=== PATIENT | female | born 1995 | race American Indian/Alaskan Native ===

== ENCOUNTER 2020-12-01 17:08 | Emergency (ER) | payer SELFPAY ==
[2020-12-01 17:55] VITALS: BP 120/56
--- NOTE | 2020-12-01 18:11 | Emergency Department Report ---
- General Chief complaint: Allergic Reaction Stated complaint: ALLERGIC REACTION Time Seen by Provider: 12/01/20 18:06 Source: patient Mode of arrival: Ambulatory Limitations: No Limitations - History of Present Illness Initial comments: pt is a 25 yo female who presents to the ED with c/o a rash that began a month ago. she states she recently moved here in august. she states she was not sure if she was having an allergic reaction to something. she states she changed all her soaps and detergents to sensitive skin. she states she continues to have intermittent outbreaks of the rash. she states it is present to the back of the wrists, flexors of the elbow, in between the legs, behind the knees. she denies any known allergies. she denies any new medications and foods. she states she has been using cortisone over the counter without much relief. she states it itches and cervantes. she denies any facial swelling, sensation of throat closing, difficulty swallowing or breathing. no pmhx. no allergies to meds. she is currently on her menstrual cycle. - Related Data Previous Rx's Medication Instructions Recorded Last Taken Type Codeine/Butalbital/ASA/Caffein 1 each PO Q4-6H PRN #30 capsule 12/30/15 Unknown Rx [Fiorinal with Codeine #3 Cap] Ibuprofen [Motrin 800 MG tab] 800 mg PO TID PRN #30 tablet 12/30/15 Unknown Rx Naproxen [Naprosyn] 500 mg PO BID PRN #20 tablet 07/05/16 Unknown Rx Prednisone [predniSONE 10 mg 10 mg PO .TAPER #1 tab.ds.pk 12/01/20 Unknown Rx (6-Day Pack, 21 Tabs)] Triamcinolone 0.1% [Kenalog 0.1% 1 applic TP TID #1 tube 12/01/20 Unknown Rx CREAM] diphenhydrAMINE [Benadryl CAP] 25 mg PO Q6HR PRN #14 capsule 12/01/20 Unknown Rx Allergies Allergy/AdvReac Type Severity Reaction Status Date / Time No Known Allergies Allergy Unverified 12/28/15 21:11 Abscess Boil HPI - HPI Chief Complaint: Allergic Reaction Stated Complaint: ALLERGIC REACTION Time Seen by Provider: 12/01/20 18:06 Home Medications: Previous Rx's Medication Instructions Recorded Last Taken Type Codeine/Butalbital/ASA/Caffein 1 each PO Q4-6H PRN #30 capsule 12/30/15 Unknown Rx [Fiorinal with Codeine #3 Cap] Ibuprofen [Motrin 800 MG tab] 800 mg PO TID PRN #30 tablet 12/30/15 Unknown Rx Naproxen [Naprosyn] 500 mg PO BID PRN #20 tablet 07/05/16 Unknown Rx Prednisone [predniSONE 10 mg 10 mg PO .TAPER #1 tab.ds.pk 12/01/20 Unknown Rx (6-Day Pack, 21 Tabs)] Triamcinolone 0.1% [Kenalog 0.1% 1 applic TP TID #1 tube 12/01/20 Unknown Rx CREAM] diphenhydrAMINE [Benadryl CAP] 25 mg PO Q6HR PRN #14 capsule 12/01/20 Unknown Rx Allergies/Adverse Reactions: Allergies Allergy/AdvReac Type Severity Reaction Status Date / Time No Known Allergies Allergy Unverified 12/28/15 21:11 ED Review of Systems ROS: Stated complaint: ALLERGIC REACTION Other details as noted in HPI Comment: All other systems reviewed and negative ED Past Medical Hx - Past Medical History Previous Medical History?: Yes Hx Hypertension: Yes (gestational) Hx Congestive Heart Failure: No Hx Diabetes: No Hx Deep Vein Thrombosis: No Hx Renal Disease: No Hx Sickle Cell Disease: No Hx Seizures: No Hx Asthma: No Hx COPD: No Hx HIV: No Additional medical history: Had IUD placed 05/29/16 - Surgical History Past Surgical History?: Yes Hx Cholecystectomy: Yes - Social History Smoking Status: Current Every Day Smoker - Medications Home Medications: Home Medications Medication Instructions Recorded Confirmed Last Taken Type Codeine/Butalbital/ASA/Caffein 1 each PO Q4-6H PRN #30 capsule 12/30/15 Unknown Rx [Fiorinal with Codeine #3 Cap] Ibuprofen [Motrin 800 MG tab] 800 mg PO TID PRN #30 tablet 12/30/15 Unknown Rx Naproxen [Naprosyn] 500 mg PO BID PRN #20 tablet 07/05/16 Unknown Rx Prednisone [predniSONE 10 mg 10 mg PO .TAPER #1 tab.ds.pk 12/01/20 Unknown Rx (6-Day Pack, 21 Tabs)] Triamcinolone 0.1% [Kenalog 0.1% 1 applic TP TID #1 tube 12/01/20 Unknown Rx CREAM] diphenhydrAMINE [Benadryl CAP] 25 mg PO Q6HR PRN #14 capsule 12/01/20 Unknown Rx ED Physical Exam - General Limitations: No Limitations General appearance: alert, in no apparent distress - Head Head exam: Present: atraumatic, normocephalic - Eye Eye exam: Present: normal appearance - ENT ENT exam: Present: mucous membranes moist - Respiratory Respiratory exam: Absent: respiratory distress, accessory muscle use - Neurological Exam Neurological exam: Present: alert, oriented X3 - Psychiatric Psychiatric exam: Present: normal affect, normal mood - Skin Skin exam: Present: warm, dry, other (small erythematous macules present to the flexor of the wrists, flexors of the elbow, flexors of the knees, no blistering, no skin denuding, no necrosis, no signs of infection) ED Course Vital Signs 12/01/20 17:52 Temperature 98.1 F Pulse Rate 84 Respiratory 16 Rate Blood Pressure 120/56 O2 Sat by Pulse 98 Oximetry ED Medical Decision Making - Medical Decision Making pt is a 25 yo female who presents to the ED with c/o a rash that began a month ago. she states she recently moved here in august. she states she was not sure if she was having an allergic reaction to something. she states she changed all her soaps and detergents to sensitive skin. she states she continues to have intermittent outbreaks of the rash. she states it is present to the back of the wrists, flexors of the elbow, in between the legs, behind the knees. she denies any known allergies. she denies any new medications and foods. she states she has been using cortisone over the counter without much relief. she states it itches and cervantes. she denies any facial swelling, sensation of throat closing, difficulty swallowing or breathing. no pmhx. no allergies to meds. she is currently on her menstrual cycle. Vitals are normal. On exam: small erythematous macules present to the flexor of the wrists, flexors of the elbow, flexors of the knees, no blistering, no skin denuding, no necrosis, no signs of infection. Symptoms appear most consistent with eczema outbreak. Given prescription for prednisone, triamcinolone, Benadryl. Advised patient please u se medication as prescribed. do not drive or operate heavy machinery while taking benadryl due to potential for drowsiness. please also use an emollient lotion over the counter. follow up with a primary care doctor. return to the emergency room for any new or worsening symptoms. Critical care attestation.: If time is entered above; I have spent that time in minutes in the direct care of this critically ill patient, excluding procedure time. ED Disposition Clinical Impression: Rash Disposition: DC-01 TO HOME OR SELFCARE Is pt being admited?: No Does the pt Need Aspirin: No Condition: Stable Instructions: Eczema, Rash, Adult, [id number] Additional Instructions: please use medication as prescribed. do not drive or operate heavy machinery while taking benadryl due to potential for drowsiness. please also use an emollient lotion over the counter. follow up with a primary care doctor. return to the emergency room for any new or worsening symptoms. Prescriptions: diphenhydrAMINE [Benadryl CAP] 25 mg PO Q6HR PRN #14 capsule PRN Reason: itching Triamcinolone 0.1% [Kenalog 0.1% CREAM] 1 applic TP TID #1 tube Prednisone [predniSONE 10 mg (6-Day Pack, 21 Tabs)] 10 mg PO .TAPER #1 tab.ds.pk Referrals: SARIKA PUGH MD [Staff Physician] - 3-5 Days [facility] [Provider Group] - 3-5 Days [facility] [Outside] - 3-5 Days Time of Disposition: 18:11 Print Language: PASHTO
== END 2020-12-01 19:20 | disposition home or self-care (01) ==
LOC: ED 17:08
DX: R21 Rash and other nonspecific skin eruption (principal); I10 Essential (primary) hypertension; F17.200 Nicotine dependence, unspecified, uncomplicated; Z90.49 Acquired absence of other specified parts of digestive tract; Z79.899 Other long term (current) drug therapy
CPT/HCPCS: 99282

== ENCOUNTER 2021-06-23 01:51 | Emergency (ER) | payer SELFPAY ==
[2021-06-23 02:03] VITALS: BP 113/71
[2021-06-23 03:41] LABS: Basophils # (Auto) 0.1 K/mm3 (0.0-0.1); Basophils % (Auto) 0.8 % (0.0-1.8); Eosinophils # (Auto) 0.1 K/mm3 (0.0-0.4); Eosinophils % (Auto) 0.6 % (0.0-4.3); Hematocrit 34.5 % (30.3-42.9); Hemoglobin 11.4 gm/dl (10.1-14.3); Lymphocytes # (Auto) 2.8 K/mm3 (1.2-5.4); Mean Corpuscular HGB Conc 33 % (30-34); Mean Corpuscular Volume 79 fl (79-97); Monocytes # (Auto) 1.1 K/mm3 (0.0-0.8); Monocytes % (Auto) 6.8 % (0.0-7.3); Platelet Count 429 K/mm3 (140-440); Red Blood Count 4.35 M/mm3 (3.65-5.03); Red Cell Distribution Width 19.3 % (13.2-15.2)
[2021-06-23 03:57] LABS: Alanine Aminotransferase 30 units/L (7-56); Albumin 3.7 g/dL (3.9-5); Blood Urea Nitrogen 5 mg/dL (7-17); Calcium 9.4 mg/dL (8.4-10.2); Hemolysis Index 2
--- NOTE | 2021-06-23 03:57 | Emergency Department Report ---
ED HPI - General Chief complaint: Abdominal Pain Stated complaint: SHARP ABD PAINS Time Seen by Provider: 06/23/21 03:52 Source: patient Mode of arrival: Wheelchair Limitations: No Limitations - History of Present Illness Initial comments: Patient is a 26-year-old female that presents emergency room with complaints of lower abdominal pain. Patient states the pain started 2 days ago. Patient dates the pain is worsening. Patient states she is 18 weeks . Patient states she is followed by FABRICATION TECHNICIAN. Patient states she has had confirmation by ultrasound. Patient denies vaginal bleeding. Patient denies dysuria. Patient denies fever and chills. Patient states she had sex earlier today. Patient states she is a G2, P1 Patient denies recent travel. Patient denies recent international travel. Patient denies exposure to the novel coronavirus. Patient denies sick contacts. Patient denies fever and chills. Patient denies cough. Patient denies diarrhea. Patient denies coming in contact with anybody with symptoms of the no lee coronavirus. MD Complaint: abdominal pain -: Sudden Location: abdomen Radiation: L flank, R flank Severity: severe Quality: cramping, stabbing Consistency: intermittent Improves with: rest Worsens with: movement Associated symptoms: abdominal pain. denies: nausea/vomiting, vaginal bleeding, vaginal discharge, dysuria, headache, vision changes, malaise, dysparuenia, rash, seizure, shortness of breath, syncope, weakness Vaginal bleeding: none :: Yes Number of weeks : 18 OB History - Current : no complications OB History - Previous Pregnancies: no complications Pre-sudeep care: followed by OB, previous ultrasound confi - Related Data Previous Rx's Medication Instructions Recorded Last Taken Type Codeine/Butalbital/ASA/Caffein 1 each PO Q4-6H PRN #30 capsule 12/30/15 Unknown Rx [Fiorinal with Codeine #3 Cap] Ibuprofen [Motrin 800 MG tab] 800 mg PO TID PRN #30 tablet 12/30/15 Unknown Rx Naproxen [Naprosyn] 500 mg PO BID PRN #20 tablet 07/05/16 Unknown Rx Prednisone [predniSONE 10 mg 10 mg PO .TAPER #1 tab.ds.pk 12/01/20 Unknown Rx (6-Day Pack, 21 Tabs)] Triamcinolone 0.1% [Kenalog 0.1% 1 applic TP TID #1 tube 12/01/20 Unknown Rx CREAM] diphenhydrAMINE [Benadryl CAP] 25 mg PO Q6HR PRN #14 capsule 12/01/20 Unknown Rx Allergies Allergy/AdvReac Type Severity Reaction Status Date / Time No Known Allergies Allergy Verified 06/23/21 02:03 ED Review of Systems ROS: Stated complaint: SHARP ABD PAINS Other details as noted in HPI Constitutional: denies: chills, fever Eyes: denies: eye pain, eye discharge, vision change ENT: denies: ear pain, throat pain Respiratory: denies: cough, shortness of breath, wheezing Cardiovascular: denies: chest pain, palpitations Endocrine: no symptoms reported Gastrointestinal: abdominal pain. denies: nausea, diarrhea Genitourinary: denies: urgency, dysuria, discharge Musculoskeletal: denies: back pain, joint swelling, arthralgia Skin: denies: rash, lesions Neurological: denies: headache, weakness, paresthesias Psychiatric: denies: anxiety, depression Hematological/Lymphatic: denies: easy bleeding, easy bruising ED Past Medical Hx - Past Medical History Previous Medical History?: Yes Hx Hypertension: Yes (gestational) Hx Congestive Heart Failure: No Hx Diabetes: No Hx Deep Vein Thrombosis: No Hx Renal Disease: No Hx Sickle Cell Disease: No Hx Seizures: No Hx Asthma: No Hx COPD: No Hx HIV: No Additional medical history: Had IUD placed 05/29/16 - Surgical History Past Surgical History?: Yes Hx Cholecystectomy: Yes - Family History Family history: no significant - Social History Smoking Status: Never Smoker Substance Use Type: None - Medications Home Medications: Home Medications Medication Instructions Recorded Confirmed Last Taken Type Codeine/Butalbital/ASA/Caffein 1 each PO Q4-6H PRN #30 capsule 12/30/15 Unknown Rx [Fiorinal with Codeine #3 Cap] Ibuprofen [Motrin 800 MG tab] 800 mg PO TID PRN #30 tablet 12/30/15 Unknown Rx Naproxen [Naprosyn] 500 mg PO BID PRN #20 tablet 07/05/16 Unknown Rx Prednisone [predniSONE 10 mg 10 mg PO .TAPER #1 tab.ds.pk 12/01/20 Unknown Rx (6-Day Pack, 21 Tabs)] Triamcinolone 0.1% [Kenalog 0.1% 1 applic TP TID #1 tube 12/01/20 Unknown Rx CREAM] diphenhydrAMINE [Benadryl CAP] 25 mg PO Q6HR PRN #14 capsule 12/01/20 Unknown Rx ED Physical Exam - General Limitations: No Limitations General appearance: alert, in no apparent distress - Head Head exam: Present: atraumatic, normocephalic - Eye Eye exam: Present: normal appearance - ENT ENT exam: Present: mucous membranes moist - Neck Neck exam: Present: normal inspection - Respiratory Respiratory exam: Present: normal lung sounds bilaterally. Absent: respiratory distress - Cardiovascular Cardiovascular Exam: Present: regular rate, normal rhythm. Absent: systolic murmur, diastolic murmur, rubs, gallop - GI/Abdominal GI/Abdominal exam: Present: soft, normal bowel sounds. Absent: distended, tenderness, guarding - Extremities Exam Extremities exam: Present: normal inspection - Back Exam Back exam: Present: normal inspection - Neurological Exam Neurological exam: Present: alert, oriented X3 - Psychiatric Psychiatric exam: Present: normal affect, normal mood - Skin Skin exam: Present: warm, dry, intact, normal color. Absent: rash ED Course Vital Signs 06/23/21 06/23/21 01:59 06:51 Temperature 98.0 F Pulse Rate 81 80 Respiratory 18 18 Rate Blood Pressure 113/71 O2 Sat by Pulse 98 98 Oximetry - Reevaluation(s) Reevaluation #1: I discussed all results and clinical findings with patient. I discussed plan of care with patient. Patient agrees with plan of care. Patient is stable for discharge. Patient will be discharged home. Patient given discharge instruct ions. Patient voiced understanding of discharge instructions. 06/23/21 05:43 ED Medical Decision Making - Lab Data Result diagrams: 06/23/21 03:21 06/23/21 03:21 - Radiology Data Radiology results: report reviewed ULTRASOUND OBSTETRIC COMPLETE INDICATION / CLINICAL INFORMATION: abdomen pain. Clinical Gestational Age (GA) in weeks, days: 14 weeks 2 days TECHNIQUE: Transabdominal. COMPARISON: None available. FINDINGS: Single live IUP in cephalic presentation. Posterior placenta is free of the os. MEASUREMENTS: - Biparietal Diameter = 2.5 cm = 14 weeks 2 days - Head Circumference = 9.6 cm = 14 weeks 3 days - Abdominal Circumference = 8.6 cm = 14 weeks 6 days - Femur Length = 1.6 cm = 14 weeks 5 days - Heart Rate (beats per minute): 158 ADDITIONAL FINDINGS: None. AVERAGE ULTRASOUND AGE (AUA) in weeks, days = 14 weeks 4 days IMPRESSION: Single intrauterine with ultrasound age of 14 weeks 4 days. No significant abnormality. - Medical Decision Making Patient is a 26-year-old female who presents emergency room with complaints of lower abdominal pain. Patient abdominal pain is more to the flank area. Patient denies nausea vomiting. Patient denies chest pain shortness of breath. Patient had an ultrasound which was negative and shows a stable IUP. Patient had labs done which was essentially unremarkable. Patient's urine shows moderate leukocyte esterases but very low WBCs. Patient's urine is asymptomatic pyuria and can be followed by her FABRICATION TECHNICIAN. Patient is stable for discharge. Patient will follow up with her FABRICATION TECHNICIAN as an outpatient. Patient not require any inpatient services. Patient require further emergency medical service. Patient stable for discharge. I discussed all results and clinical findings with patient. I discussed plan of care with patient. Patient agrees with plan of care. Patient is stable for discharge. Patient will be discharged home. Patient given discharge instructions. Patient voiced understanding of discharge instructions. - Differential Diagnosis Round ligament pain, , abdominal pain, Critical care attestation.: If time is entered above; I have spent that time in minutes in the direct care of this critically ill patient, excluding procedure time. ED Disposition Clinical Impression: Abdominal pain affecting , Lower abdominal pain, Round ligament pain Qualifiers: Weeks of gestation: 18 weeks Qualified Code(s): Z3A.18 - 18 weeks gestation of Disposition: 01 HOME / SELF CARE / HOMELESS Is pt being admited?: No Does the pt Need Aspirin: No Condition: Stable Instructions: Round Ligament Pain, Abdominal Pain During , [id number], Abdominal Pain (ED) Additional Instructions: Patient to follow-up with primary care in 2 to 3 days. Patient to follow-up with FABRICATION TECHNICIAN in 2 to 3 days. Patient to rest. Patient to increase water. Patient to avoid strenuous exercise or heavy lifting until cleared by FABRICATION TECHNICIAN. No sexual activity until cleared by OB, IRRIGATOR OVERHEAD. Patient to take Tylenol as needed for pain. Patient to continue vitamin. Patient to return to the ER if condition worsens, changes or new symptoms arise. Referrals: PRIMARY CARE, [Primary Care Provider] - 2-3 Days Forms: Accompanied Note, Work/School Release Form(ED) Time of Disposition: 05:43
[2021-06-23 04:10] LABS: BUN/Creatinine Ratio 10
--- NOTE | 2021-06-23 05:38 | Ultrasound Report ---
ULTRASOUND OBSTETRIC COMPLETE INDICATION / CLINICAL INFORMATION: abdomen pain. Clinical Gestational Age (GA) in weeks, days: 14 weeks 2 days TECHNIQUE: Transabdominal. COMPARISON: None available. FINDINGS: Single live IUP in cephalic presentation. Posterior placenta is free of the os. MEASUREMENTS: - Biparietal Diameter = 2.5 cm = 14 weeks 2 days - Head Circumference = 9.6 cm = 14 weeks 3 days - Abdominal Circumference = 8.6 cm = 14 weeks 6 days - Femur Length = 1.6 cm = 14 weeks 5 days - Heart Rate (beats per minute): 158 ADDITIONAL FINDINGS: None. AVERAGE ULTRASOUND AGE (AUA) in weeks, days = 14 weeks 4 days IMPRESSION: Single intrauterine with ultrasound age of 14 weeks 4 days. No significant abnormality. Signer Name: Jose Milian MD Signed: 06/23/2021 5:33 AM Workstation Name: [id number]
[2021-06-23 06:51] LABS: Bacteria,Urine 1+ /HPF (Negative); Bilirubin,Urine NEG (Negative); Blood,Urine NEG (Negative); Color,Urine Yellow (Yellow); Mucus,Urine 1+ /HPF; Protein,Urine <15 mg/dL mg/dL (Negative); Urobilinogen,Urine < 2.0 mg/dL (<2.0)
[2021-06-23 07:10] LABS: RBC,Urine < 1.0 /HPF (0.0-6.0)
== END 2021-06-23 06:53 | disposition home or self-care (01) ==
LOC: ED 01:51
DX: O26.892 Other specified pregnancy related conditions, second trimester (principal); R10.30 Lower abdominal pain, unspecified; R10.2 Pelvic and perineal pain; Z3A.14 14 weeks gestation of pregnancy; I10 Essential (primary) hypertension
CPT/HCPCS: 36415; 76805; 80053; 81001; 84702; 85025; 86850; 86900; 86901; 99284

== ENCOUNTER 2021-07-14 13:31 | Emergency (ER) | payer OTHER ==
[2021-07-14] MEDS ORDERED: SODIUM CHLORIDE 0.9% 1000 ML 1,000 ML IV ONE (13:43)
--- NOTE | 2021-07-14 14:07 | Emergency Department Report ---
ED Abdominal Pain HPI - General Chief Complaint: Abdominal Pain Stated Complaint: 17WKS /KIDNEY INFECTION Source: patient Mode of arrival: Ambulatory Limitations: No Limitations - History of Present Illness Initial Comments: The patient was evaluated in the emergency department for symptoms described in the history of present illness. He/she was evaluated in the context of the global COVID-19 pandemic, which necessitated consideration that the patient might be at risk for infection with the virus that causes COVID-19. Institutional protocols and algorithms that pertain to the evaluation of patients at risk for COVID-19 are in a state of rapid change based on info rmation released by regulatory bodies including the CDC and federal and state organizations. These policies and algorithms were followed during the patient's care in the emergency department. Please note that these policies, procedures and recommendations changed on a rapid basis. 26-year-old -[place] female who is approximately 17 weeks presents to the emergency room from [facility] for kidney infection. Patient complains that the pain just started yesterday in her left flank and now it is on both sides. Patient reports that she has had some mild bleeding when she had intercourse. She is 3 para 1 with 1 . Patient denies any fever chills but does admit to nausea and vomiting. She reports her pain is located bilateral flanks are 8 out of 10. MD Complaint: abdominal pain -: Last night Location: L flank, R flank Radiation: LUQ, RUQ Severity scale (0 -10): 8 Quality: stabbing, sharp Consistency: intermittent Improves With: nothing Worsens With: nothing Associated Symptoms: nausea, vomiting - Related Data Previous Rx's Medication Instructions Recorded Last Taken Type Codeine/Butalbital/ASA/Caffein 1 each PO Q4-6H PRN #30 capsule 12/30/15 Unknown Rx [Fiorinal with Codeine #3 Cap] Ibuprofen [Motrin 800 MG tab] 800 mg PO TID PRN #30 tablet 12/30/15 Unknown Rx Naproxen [Naprosyn] 500 mg PO BID PRN #20 tablet 07/05/16 Unknown Rx Prednisone [predniSONE 10 mg 10 mg PO .TAPER #1 tab.ds.pk 12/01/20 Unknown Rx (6-Day Pack, 21 Tabs)] Triamcinolone 0.1% [Kenalog 0.1% 1 applic TP TID #1 tube 12/01/20 Unknown Rx CREAM] diphenhydrAMINE [Benadryl CAP] 25 mg PO Q6HR PRN #14 capsule 12/01/20 Unknown Rx Nitrofurantoin [place]/M-Cryst 100 mg PO Q12HR 7 Days #14 capsule 07/14/21 Unknown Rx [Macrobid CAP] Allergies Allergy/AdvReac Type Severity Reaction Status Date / Time No Known Allergies Allergy Verified 06/23/21 02:03 ED Review of Systems ROS: Stated complaint: 17WKS /KIDNEY INFECTION Other details as noted in HPI Comment: All other systems reviewed and negative ED Past Medical Hx - Past Medical History Previous Medical History?: Yes Hx Hypertension: Yes (gestational) Hx Congestive Heart Failure: No Hx Diabetes: No Hx Deep Vein Thrombosis: No Hx Renal Disease: No Hx Sickle Cell Disease: No Hx Seizures: No Hx Asthma: No Hx COPD: No Hx HIV: No Additional medical history: Had IUD placed 05/29/16 - Surgical History Past Surgical History?: Yes Hx Cholecystectomy: Yes - Social History Smoking Status: Never Smoker Substance Use Type: None - Medications Home Medications: Home Medications Medication Instructions Recorded Confirmed Last Taken Type Codeine/Butalbital/ASA/Caffein 1 each PO Q4-6H PRN #30 capsule 12/30/15 Unknown Rx [Fiorinal with Codeine #3 Cap] Ibuprofen [Motrin 800 MG tab] 800 mg PO TID PRN #30 tablet 12/30/15 Unknown Rx Naproxen [Naprosyn] 500 mg PO BID PRN #20 tablet 07/05/16 Unknown Rx Prednisone [predniSONE 10 mg 10 mg PO .TAPER #1 tab.ds.pk 12/01/20 Unknown Rx (6-Day Pack, 21 Tabs)] Triamcinolone 0.1% [Kenalog 0.1% 1 applic TP TID #1 tube 12/01/20 Unknown Rx CREAM] diphenhydrAMINE [Benadryl CAP] 25 mg PO Q6HR PRN #14 capsule 12/01/20 Unknown Rx Nitrofurantoin [place]/M-Cryst 100 mg PO Q12HR 7 Days #14 capsule 07/14/21 Unknown Rx [Macrobid CAP] ED Physical Exam - General Limitations: No Limitations General appearance: alert, in distress - Head Head exam: Present: atraumatic, normocephalic - Eye Eye exam: Present: normal appearance - ENT ENT exam: Present: mucous membranes moist - Neck Neck exam: Present: normal inspection, full ROM - Respiratory Respiratory exam: Absent: accessory muscle use - Cardiovascular Cardiovascular Exam: Present: regular rate - GI/Abdominal GI/Abdominal exam: Present: soft. Absent: distended, tenderness - Extremities Exam Extremities exam: Present: normal inspection - Back Exam Back exam: Present: CVA tenderness (L) - Neurological Exam Neurological exam: Present: alert, oriented X3 - Psychiatric Psychiatric exam: Present: normal affect, normal mood - Skin Skin exam: Present: warm, dry, intact, normal color. Absent: rash ED Course Vital Signs 07/14/21 07/14/21 13:36 14:25 Temperature 97.7 F 98.8 F Pulse Rate 102 H 66 Respiratory 18 14 Rate Blood Pressure 125/87 166/75 [Left] O2 Sat by Pulse 100 97 Oximetry - Consultations Consultation #1: 07/14/21 16:[address] Millan DAG COATER at [facility]. He recommends try to keep patient out of the hospital we will treat her with Macrobid 100 mg twice daily for 7 days increase her fluid intake give her precaution information and have her follow-up next week to the clinic. Stressed to her that if she starts to feel worse fever worsening pain to follow-up in the emergency room. ED Medical Decision Making - Lab Data Result diagrams: 07/14/21 14:00 07/14/21 14:00 - Medical Decision Making 26-year-old -[place] female who is approximately 17 weeks presents to the emergency room from [facility] for kidney infection. Patient complains that the pain just started yesterday in her left flank and now it is on both sides. Patient reports that she has had some mild bleeding when she had intercourse. She is 3 para 1 with 1 . Patient denies any fever chills but does admit to nausea and vomiting. She reports her pain is located bilateral flanks are 8 out of 10. CBC CMP urinalysis lipase INT fluids Labs came back positive for urinary tract infection spoke to Dr. Murphy from [facility]. Patient was given 1 g of Rocephin IV normal saline 1 L. Patient be discharged home with Macrobid and instructions on if her symptoms persist or gets worse to return back to the emergency room other than that she can follow-up with her DAG COATER next week. Patient verbalized understanding of plan and care. Critical care attestation.: If time is entered above; I have spent that time in minutes in the direct care of this critically ill patient, excluding procedure time. ED Disposition Clinical Impression: UTI (urinary tract infection) in in second trimester Disposition: 01 HOME / SELF CARE / HOMELESS Is pt being admited?: No Does the pt Need Aspirin: No Condition: Stable Instructions: Abdominal Pain (ED), and Urinary Tract Infection Additional Instructions: Complete antibiotics as prescribed. Tylenol as needed for any pain. Is very important for you to increase your fluid intake. Return back to the emergency room if you have any worsening symptoms or you develop a fever. Otherwise follow-up next week with your DAG COATER. Prescriptions: Nitrofurantoin [place]/M-Cryst [Macrobid CAP] 100 mg PO Q12HR 7 Days #14 capsule Referrals: [facility] [Provider Group] - 3-5 Days Forms: Work/School Release Form(ED) Time of Disposition: 16:12
[2021-07-14 14:14] LABS: Basophils # (Auto) 0.2 K/mm3 (0.0-0.1); Eosinophils # (Auto) 0.1 K/mm3 (0.0-0.4); Eosinophils % (Auto) 0.7 % (0.0-4.3); Hematocrit 36.9 % (30.3-42.9); Hemoglobin 12.5 gm/dl (10.1-14.3); Mean Corpuscular HGB Conc 34 % (30-34); Mean Corpuscular Volume 82 fl (79-97); Monocytes % (Auto) 6.8 % (0.0-7.3); Platelet Count 452 K/mm3 (140-440); Red Blood Count 4.52 M/mm3 (3.65-5.03)
[2021-07-14 14:38] LABS: Alanine Aminotransferase 32 units/L (7-56); Blood Urea Nitrogen 4 mg/dL (7-17); Calcium 9.6 mg/dL (8.4-10.2); Hemolysis Index 1
[2021-07-14 14:43] LABS: BUN/Creatinine Ratio 7
[2021-07-14 15:37] LABS: Bacteria,Urine 4+ /HPF (Negative); Bilirubin,Urine NEG (Negative); Blood,Urine MOD (Negative); Color,Urine Yellow (Yellow); Mucus,Urine FEW /HPF; Urobilinogen,Urine < 2.0 mg/dL (<2.0)
[2021-07-14 15:50] LABS: WBC,Urine > 182.0 /HPF (0.0-6.0)
[2021-07-14] MEDS ORDERED: cefTRIAXone/NS 1 GM/50 ML 1 GM/50 ML BAG IV ONE (15:59)
[2021-07-14 16:36] VITALS: BP 111/63
== END 2021-07-14 16:34 | disposition home or self-care (01) ==
LOC: ED 13:31
DX: O23.42 Unspecified infection of urinary tract in pregnancy, second trimester (principal); O13.2 Gestational [pregnancy-induced] hypertension without significant proteinuria, second trimester; Z3A.17 17 weeks gestation of pregnancy; Z98.890 Other specified postprocedural states
CPT/HCPCS: 36415; 80053; 81001; 83690; 85025; 96361; 96374; 99283; J0696; J7030

== ENCOUNTER 2021-09-21 11:11 | Outpatient (CLI) | payer OTHER ==
[2021-09-21 12:56] LABS: Bacteria,Urine 1+ /HPF (Negative); Bilirubin,Urine NEG (Negative); Blood,Urine NEG (Negative); Color,Urine Yellow (Yellow); Mucus,Urine FEW /HPF; Protein,Urine <15 mg/dL mg/dL (Negative); Urobilinogen,Urine < 2.0 mg/dL (<2.0)
[2021-09-21] MEDS ORDERED: LACTATED RINGERS 500 ML IV ONE (13:06)
[2021-09-21] MEDS ORDERED: fentaNYL 100 MCG/2 ML INJ ONE (20:08)
[2021-09-21] MEDS: ACETAMINOPHEN 325 MG TAB PO PRN (21:00)
[2021-09-22] MEDS: ACETAMINOPHEN 325 MG TAB PO PRN (10:13)
[2021-09-22 10:24] LABS: Hematocrit 31.3 % (30.3-42.9); Hemoglobin 9.7 gm/dl (10.1-14.3); Mean Corpuscular HGB Conc 31 % (30-34); Mean Corpuscular Volume 83 fl (79-97); Platelet Count 315 K/mm3 (140-440); Red Blood Count 3.76 M/mm3 (3.65-5.03); Red Cell Distribution Width 15.6 % (13.2-15.2)
[2021-09-22 10:42] LABS: Alanine Aminotransferase 16 units/L (7-56); Albumin 3.2 g/dL (3.9-5); Blood Urea Nitrogen 4 mg/dL (7-17); Calcium 8.5 mg/dL (8.4-10.2); Hemolysis Index 4
[2021-09-22 10:54] LABS: BUN/Creatinine Ratio 8
[2021-09-22 11:21] LABS: Anisocytosis 1+; Hypochromasia 1+; Total Cells Counted 100
[2021-09-22 11:22] LABS: Platelet Estimate Consistent w Auto
--- NOTE | 2021-09-22 11:39 | History and Physical Report ---
History of Present Illness Date of examination: 09/22/21 Chief complaint: cough and fever History of present illness: preg at 25 wks with cough and fever. pt admits to movement. Denies vag bleed or LOF. Denies headache. care at [facility] Past History Past Medical History: no pertinent history Past Surgical History: no surgical history - Obstetrical History Expected Date of Delivery: 12/20/21 Actual Gestation: 27 Week(s) 2 Day(s) : 3 Hx # Term Pregnancies: 1 Spontaneous Abortions: 1 Number of Living Children: 1 Medications and Allergies Allergies Allergy/AdvReac Type Severity Reaction Status Date / Time No Known Allergies Allergy Verified 06/23/21 02:03 Home Medications Medication Instructions Recorded Confirmed Last Taken Type Codeine/Butalbital/ASA/Caffein 1 each PO Q4-6H PRN #30 capsule 12/30/15 Unknown Rx [Fiorinal with Codeine #3 Cap] Ibuprofen [Motrin 800 MG tab] 800 mg PO TID PRN #30 tablet 12/30/15 Unknown Rx Naproxen [Naprosyn] 500 mg PO BID PRN #20 tablet 07/05/16 Unknown Rx Prednisone [predniSONE 10 mg 10 mg PO .TAPER #1 tab.ds.pk 12/01/20 Unknown Rx (6-Day Pack, 21 Tabs)] Triamcinolone 0.1% [Kenalog 0.1% 1 applic TP TID #1 tube 12/01/20 Unknown Rx CREAM] diphenhydrAMINE [Benadryl CAP] 25 mg PO Q6HR PRN #14 capsule 12/01/20 Unknown Rx Nitrofurantoin [place]/M-Cryst 100 mg PO Q12HR 7 Days #14 capsule 07/14/21 Unknown Rx [Macrobid CAP] Active Meds: Active Medications Acetaminophen (Acetaminophen 325 Mg Tab) 650 mg PO Q6H PRN PRN Reason: Pain, Mild (1-3) Last Admin: 09/22/21 10:13 Dose: 650 mg Documented by: Review of Systems All systems: negative (cough and fever) - Vital Signs Vital signs: Vital Signs Pulse BP Pulse Ox 106 H 117/72 99 09/21/21 11:49 09/21/21 11:49 09/21/21 11:49 Temp Pulse Resp BP Pulse Ox 98.3 F 87 14 99/59 99 09/22/21 10:15 09/22/21 11:32 09/22/21 10:15 09/22/21 10:18 09/22/21 11:32 - Physical Exam Breasts: Positive: deferred Cardiovascular: Regular rate Lungs: Positive: Normal air movement Abdomen: Positive: soft (non-tender gravid) - Obstetrical FHR: category 1 Uterine Contraction Monitor Mode: External Uterine Contraction Pattern: Absent Results Result Diagrams: 09/22/21 09:45 09/22/21 09:45 Abnormal lab results 09/22/21 09/22/21 Range/Units 09:45 09:45 Hgb 9.7 L (10.1-14.3) gm/dl MCH 26 L (28-32) pg RDW 15.6 H (13.2-15.2) % Seg Neuts % (Manual) 73.0 H (40.0-70.0) % Monocytes % (Manual) 12.0 H (0.0-7.3) % Lymphocytes # (Manual) 0.9 L (1.2-5.4) K/mm3 Sodium 135 L (137-145) mmol/L Carbon Dioxide 21 L (22-30) mmol/L BUN 4 L (7-17) mg/dL Creatinine 0.5 L (0.6-1.2) mg/dL Albumin 3.2 L (3.9-5) g/dL All other labs normal. Assessment and Plan preg with symptoms of covid 1. Do covid test, check CXR, supportive care and droplet precaution 2. Observation x23hrs plan of care discussed with pt
--- NOTE | 2021-09-22 18:55 | Consultation ---
History of Present Illness - Reason for Consult Consult date: 09/22/21 covid positive Requesting physician: SARAH TROTTER - History of Present Illness 26 YO Female at 27 weeks gestation. Consult placed for coronavirus positive test. Patient seen and evaluated in her room. Patient resting company. Patient denies fever, chills, chest pain, shortness of breath, palpitation, skin rash, recent ill contacts. Patient resting comfortably. No reported nursing events. Patient is not vaccinated against COVID-19. Past History Past Medical History: No medical history, other (Reviewed) Past Surgical History: No surgical history, Other (Reviewed) Social history: single. denies: smoking, alcohol abuse, prescription drug abuse Family history: hypertension Medications and Allergies Allergies Allergy/AdvReac Type Severity Reaction Status Date / Time No Known Allergies Allergy Verified 06/23/21 02:03 Home Medications Medication Instructions Recorded Confirmed Last Taken Type Codeine/Butalbital/ASA/Caffein 1 each PO Q4-6H PRN #30 capsule 12/30/15 Unknown Rx [Fiorinal with Codeine #3 Cap] Ibuprofen [Motrin 800 MG tab] 800 mg PO TID PRN #30 tablet 12/30/15 Unknown Rx Naproxen [Naprosyn] 500 mg PO BID PRN #20 tablet 07/05/16 Unknown Rx Prednisone [predniSONE 10 mg 10 mg PO .TAPER #1 tab.ds.pk 12/01/20 Unknown Rx (6-Day Pack, 21 Tabs)] Triamcinolone 0.1% [Kenalog 0.1% 1 applic TP TID #1 tube 12/01/20 Unknown Rx CREAM] diphenhydrAMINE [Benadryl CAP] 25 mg PO Q6HR PRN #14 capsule 12/01/20 Unknown Rx Nitrofurantoin [place]/M-Cryst 100 mg PO Q12HR 7 Days #14 capsule 07/14/21 Unknown Rx [Macrobid CAP] Active Meds: Active Medications Acetaminophen (Acetaminophen 325 Mg Tab) 650 mg PO Q6H PRN PRN Reason: Pain, Mild (1-3) Last Admin: 09/22/21 10:13 Dose: 650 mg Documented by: Review of Systems Constitutional: no weight loss, no weight gain Ears, nose, mouth and throat: no ear pain, no ear discharge, no tinnitis, no decreased hearing, no nose pain Breasts: no change in shape, no swelling, no mass Cardiovascular: no chest pain, no orthopnea, no rapid/irregular heart beat, no syncope Respiratory: no cough, no cough with sputum, no shortness of breath Gastrointestinal: no nausea, no vomiting, no diarrhea, no constipation Genitourinary Female: no pelvic pain, no flank pain, no dysuria, no urinary frequency Rectal: no pain, no incontinence, no bleeding Musculoskeletal: no neck stiffness, no neck pain, no shooting arm pain Integumentary: no rash, no pruritis, no redness, no sores Neurological: no transient paralysis, no paralysis, no parathesias, no tingling Psychiatric: no anxiety, no memory loss, no sleep disturbances, no insomnia, no hypersomnia, no change in appetite, no suicidal ideation Endocrine: no cold intolerance, no polyphagia, no excessive thirst, no flushing Hematologic/Lymphatic: no easy bruising, no easy bleeding Allergic/Immunologic: no urticaria, no allergic rhinitis, no wheezing Exam - Constitutional Vitals: Temp Pulse Resp BP Pulse Ox 98.3 F 93 H 14 99/59 100 09/22/21 10:15 09/22/21 18:54 09/22/21 10:15 09/22/21 10:18 09/22/21 18:54 General appearance: Present: no acute distress, well-nourished, obese - EENT Eyes: Present: PERRL ENT: hearing intact, clear oral mucosa - Neck Neck: Present: supple, normal ROM - Respiratory Respiratory effort: normal Respiratory: bilateral: CTA - Cardiovascular Heart Sounds: Present: S1 & S2. Absent: rub, click - Extremities Extremities: pulses symmetrical, No edema Peripheral Pulses: within normal limits - Abdominal General gastrointestinal: Present: soft, non-tender, non-distended, normal bowel sounds Female genitourinary: Present: normal - Integumentary Integumentary: Present: clear, warm, dry - Musculoskeletal Musculoskeletal: gait normal, strength equal bilaterally - Psychiatric Psychiatric: appropriate mood/affect, intact judgment & insight - Neurologic Neurologic: CNII-XII intact, moves all extremities Results - Labs CBC & Chem 7: 09/22/21 09:45 09/22/21 09:45 Labs: Abnormal lab results 09/22/21 09/22/21 09/22/21 Range/Units 09:45 09:45 Unknown Hgb 9.7 L (10.1-14.3) gm/dl MCH 26 L (28-32) pg RDW 15.6 H (13.2-15.2) % Seg Neuts % (Manual) 73.0 H (40.0-70.0) % Monocytes % (Manual) 12.0 H (0.0-7.3) % Lymphocytes # (Manual) 0.9 L (1.2-5.4) K/mm3 Sodium 135 L (137-145) mmol/L Carbon Dioxide 21 L (22-30) mmol/L BUN 4 L (7-17) mg/dL Creatinine 0.5 L (0.6-1.2) mg/dL Albumin 3.2 L (3.9-5) g/dL Coronavirus (PCR) Positive A (Negative) Assessment and Plan - Patient Problems (1) SARS-CoV-2 antibody positive Current Visit: Yes Status: Acute Plan to address problem: Chest x-ray does not reveal infiltrate, patient resting comfortably on room air. Patient denies shortness of breath. Continue supportive care. Infectious disease service consulted. (2) COVID-19 vaccination not done Current Visit: Yes Status: Acute Plan to address problem: Patient counseled.
--- NOTE | 2021-09-22 19:53 | XRay Report ---
CHEST 1 VIEW 09/22/2021 7:16 PM INDICATION / CLINICAL INFORMATION: covid positive and preg. COMPARISON: None available. FINDINGS: SUPPORT DEVICES: None. HEART / MEDIASTINUM: No significant abnormality. LUNGS / PLEURA: No significant pulmonary or pleural abnormality. No pneumothorax. ADDITIONAL FINDINGS: No significant additional findings. IMPRESSION: 1. No acute findings. Signer Name: Shawn Beard MD Signed: 09/22/2021 7:48 PM Workstation Name: [id number]
[2021-09-22 21:01] VITALS: BP 107/63
== END 2021-09-22 20:35 | disposition home or self-care (01) ==
LOC: TRG 11:11 → APU 11:12 → LD 18:01 → TRG 09-22 20:35
PROVIDERS: ATTEND Obstetrics & Gynecology
DX: Z34.92 Encounter for supervision of normal pregnancy, unspecified, second trimester (principal); U07.1 COVID-19; Z3A.27 27 weeks gestation of pregnancy
CPT/HCPCS: 36415; 71045; 80053; 81001; 85007; 85025; J7120; U0003